=== PATIENT | female | born 1930 | race Caucasian/White ===

== ENCOUNTER → 2017-03-09 | Outpatient (CLI) | payer OTHER ==
[~2017-03-09] MED LIST: KEFLEX500 MG PO; NAPROSYN500 MG PO
== END ==
LOC: RAD 03:23
DX: Z12.31 Encounter for screening mammogram for malignant neoplasm of breast (principal)

== ENCOUNTER → 2018-03-16 | Outpatient (CLI) | payer OTHER | LOC: RAD 02:50 | DX: Z12.31 Encounter for screening mammogram for malignant neoplasm of breast (principal) ==